=== PATIENT | male | born 1965 | race Caucasian/White ===

== ENCOUNTER 2017-05-05 12:00 | Emergency (ER) | payer OTHER ==
[2017-05-05 12:17] VITALS: BP 144/70; PULSE 74; TEMP 98.5; BMI 25.9
[2017-05-05] MEDS ORDERED: CEFAZOLIN 1 GM/D5W 1 GM/50 ML BAG ONE (13:41)
[2017-05-05] MEDS ORDERED: DIPHTH,PERTUSS(ACELL),TET 0.5 ML DISP.SYRIN IM ONE (13:41)
--- NOTE | 2017-05-05 13:41 | PDOC ---
History of Present Illness - General Chief Complaint: Injury Stated Complaint: INNURY TO FINGER Time Seen by Provider: 05/05/17 12:54 - History of Present Illness Initial Comments: 05/05/17 13:41 CHIEF COMPLAINT: finger laceration HISTORY OF PRESENT ILLNESS: 51 yo M with no significant PMH presents to fast track with laceration to left pinky finger approximately 2 hours ago. Patient reports he hit his finger with a hammer. Patient is unsure when his last tetanus shot was. Patient denies any current fever, chills, nausea, vomiting, or diarrhea. PAST MEDICAL HISTORY: Denies past medical history FAMILY HISTORY: Denies SOCIAL HISTORY:Denies tobacco, alcohol, illicit drug use. SURGICAL HISTORY: Denies ALLERGIES: No known drug allergies REVIEW OF SYSTEMS General/Constitutional: Denies fever or chills. Cardiovascular: Denies chest pain or shortness of breath. Respiratory: Denies cough, wheezing. Gastrointestinal: Denies nausea, vomiting, diarrhea. Genitourinary: Denies dysuria, frequency, or change in urination. Musculoskeletal: Pain to left pinky but with full ROM Denies neck or back pain. Skin: laceration to left pinky Neurologic: Denies loss of sensation to fingers. PHYSICAL EXAM General Appearance: Well-appearing, appropriately dressed. No apparent distress. HEENT: EOMI, PERRLA, normal ENT inspection, normal voice, TMs normal, pharynx normal. No conjunctival pallor. No photophobia, scleral icterus. Respiratory/Chest: Lungs CTAB. Cardiovascular: RRR. S1, S2. Gastrointestinal/Abdominal: Normal bowel sounds. Abdomen soft, non-distended. No tenderness or rebound tenderness. No organomegaly, pulsatile mass, guarding , hernia, hepatomegaly, splenomegaly. Musculoskeletal/Extremities: Normal inspection. FROM of all extremities, normal capillary refill. Pelvis Stable. No CVA tenderness. No tenderness to extremities, pedal edema, swelling, erythema or deformity. Integumentary: Deep partial avulsion laceration to lateral left pinky with bony exposure of distal phalanx. Finger neurovascularly intact with full ROM and no loss of sensation. Appropriate color, dry, warm. No cyanosis, erythema, jaundice or rash Neurologic: collections specialist II-XII intact. Fully oriented, alert. Appropriate mood/affect. Motor strength 5/5. No appreciable EOM palsy, facial droop or sensory deficit. Past History - Past Medical History Allergies/Adverse Reactions: Allergies Allergy/AdvReac Type Severity Reaction Status Date / Time No Known Allergies Allergy Verified 05/05/17 12:20 Home Medications: Ambulatory Orders Cephalexin [Keflex] 500 mg PO BID #20 capsule 05/05/17 COPD: No - Suicide/Smoking/Psychosocial Hx Smoking History: Never smoked Have you smoked in the past 12 months: No Information on smoking cessation initiated: No Hx Alcohol Use: No Drug/Substance Use Hx: No Substance Use Type: None *Physical Exam - Vital Signs Last Vital Signs Temp Pulse Resp BP Pulse Ox 98.5 F 74 18 144/70 100 05/05/17 12:13 05/05/17 12:13 05/05/17 12:13 05/05/17 12:13 05/05/17 12:13 ED Treatment Course - RADIOLOGY Radiology Studies Ordered: Category Date Time Status FINGER(S) LEFT [RAD] Stat Radiology 05/05/17 13:28 Ordered Medical Decision Making - Medical Decision Making 05/05/17 13:45 51 yo M with no significant PMH presents to fast track with laceration to left pinky finger approximately 2 hours ago. -Concern for open fracture, will start patient with 1g IV Ancef. -Tdap IM Called plastics MD Wright, awaiting return call. 05/05/17 15:14 Discussed case with MD Wright, he will come do repair in fast track. Digital block performed of left pinky. 05/05/17 16:[address] Wright, will prescribe antibiotics per Dr. Wright. -Keflex po sent to pharm. Patient to follow up as per Dr. Wright. Advised patient to take medications as prescribed and complete entire course of medication. Advised patient of signs and symptoms for return to ER, patient verbalized understanding and agrees to plan *DC/Admit/Observation/Transfer Diagnosis at time of Disposition: Laceration of finger of left hand Qualifiers: Encounter type: initial encounter Finger: index finger Damage to nail status: without damage Foreign body presence: without foreign body Qualified Code(s): S61.211A - Laceration without foreign body of left index finger without damage to nail, initial encounter - Discharge Dispostion Disposition: HOME Condition at time of disposition: Stable Admit: No - Prescriptions Prescriptions: Cephalexin [Keflex] 500 mg PO BID #20 capsule - Referrals Referrals: Kalia Wright MD [Staff Physician] - Glenroy Villagomez MD [Primary Care Provider] - - Patient Instructions Printed Discharge Instructions: DI for Laceration Repair -- Finger Additional Instructions: Please follow Dr. Wright's directions for follow up. Keep the finger clean and dry for at least 48 hours. Complete the ENTIRE course of antibiotics. If you develop any fever, chills, nausea, vomiting, diarrhea, or your finger becomes swollen, hot, or red, or you develop any new or worsening symptoms, please return to the ER. - Post Discharge Activity Forms/Work/School Notes: Back to Work
[2017-05-05] MEDS ORDERED: morphine CARPU-JECT 2 MG/1 ML DISP.SYRIN IVPUSH ONE (14:26)
== END 2017-05-05 16:41 | disposition home or self-care (01) ==
LOC: JERFT 12:00
PROC: 3E03329 Introduction of Other Anti-infective into Peripheral Vein, Percutaneous Approach (ICD-10-PCS; principal; 2017-05-05)
PROC: 3E0234Z Introduction of Serum, Toxoid and Vaccine into Muscle, Percutaneous Approach (ICD-10-PCS; 2017-05-05)
DX: S62.667B Nondisplaced fracture of distal phalanx of left little finger, initial encounter for open fracture (principal); W27.8XXA Contact with other nonpowered hand tool, initial encounter; Y93.89 Activity, other specified; Y92.89 Other specified places as the place of occurrence of the external cause; Y99.8 Other external cause status
CPT/HCPCS: 73140-TC-LT; 90715; 99281-25

== ENCOUNTER 2019-07-14 12:57 | Emergency (ER) | payer OTHER ==
[2019-07-14 13:00] VITALS: BP 157/80; PULSE 81; TEMP 98.8
--- NOTE | 2019-07-14 13:07 | PDOC ---
Rapid Medical Evaluation Time Seen by Provider: 07/14/19 13:01 Medical Evaluation: Allergies Allergy/AdvReac Type Severity Reaction Status Date / Time No Known Allergies Allergy Verified 05/05/17 12:20 Vital Signs Temp Pulse Resp BP Pulse Ox 98.8 F 81 157/80 100 07/14/19 12:59 07/14/19 12:59 07/14/19 12:59 07/14/19 12:59 07/14/19 13:05 COVID NOTE HPI: The patient is a 53 y/o M with no past medical history, who presents for cough, subjective fevers for 1 days. The patient has no direct exposure to coronavirus, but he states that someone in his apartment building recently from covid 19. (-) Recent travel. They are concerned they have coronavirus and present for testing. (-) sore throat, difficulty breathing, shortness of breath, chest pain, lightheadedness, dizziness nausea, vomiting, and diarrhea. Other 12 point ROS reviewed and negative. EXAM: General: NAD, well-appearing, AAO x3. ENT: No rhinorrhea or nasal congestion. Neck: FROM, no midline tenderness Lungs: Clear to auscultation bilateral without wheezes rales or rhonchi. Normal excursion. Patient is able to speak in full sentences. Heart: Regular rate and rhythm, S1-S2 present, no murmurs rubs or gallops. Abdomen: Non-distended MSK/Extremities: no decreased ROM, no obvious deformities. No cyanosis Neuro: Normal gait, cranial nerves II through XII grossly intact. SKIN: No rashes, bruising. Color normal appearing A/P: Cough Patient has no past medical history, denies recent travel and known direct COVID exposure. Patient does not meet criteria for testing at this time. We will refer the patient to outpatient testing clinics in the [facility] for further monitoring of their symptoms. Strict return precautions given. Instructed that if they should have shortness of breath, chest pain or difficulty breathing to return to the emergency room for further management and treatment. Recommend self-isolation for 14 days given symptoms. Discharge home I discussed the physical exam findings, ancillary test results and final diagnoses with the patient. I answered all of the patient's questions. The patient was satisfied with the care received and felt comfortable with the discharge plan and treatment plan. The Patient agrees to follow up with the primary care physician/specialist within 24-72 hours. Return precautions were given. Discharge Disposition - Diagnosis Cough - Discharge Dispostion Disposition: HOME Condition at time of disposition: Stable Decision to Admit order: No - Referrals Referrals: [facility] [place] [facility] [place] [Provider Group] - Patient Instructions Printed Discharge Instructions: [facility]-Coronavirus Instructions Additional Instructions: You were seen for your cough and possible Espinal virus (COVID-19) Please call the [facility] testing center to make an appointment for a test [phone] Take Tylenol 650mg every 4 hours as needed for fever or pain You may take robitussin or other over the counter cough syrup. Follow the dosing instructions on the bottle. Warm tea, honey, and salt water gargles may help your symptoms. Please pretend like you tested positive for COVID and self-quarantine for two weeks and follow up with your primary care doctor and the department of health. Return to the ER for shortness of breath, difficulty breathing, chest pain, or if you have any changes in your symptoms. Usted fue visto por pérez tos y posible virus Espinal (COVID-19) Llame al [facility] para hacer freddy jacob para un examen [phone] [place] Tylenol 650mg cada 4 horas segn sea necesario para la fiebre o el dolor Usted puede falguni robitussina u otro sobre el jarabe para la tos de venta otto. Siga las instrucciones de dosificacin del frasco. Las grgaras de t caliente, miel y agua salada pueden ayudar a los sntomas. Por favor finja que has dado positivo para COVID y auto-cuarentena sotero dos semanas y haz un seguimiento con tu mdico de atencin primaria y el departamento de [place]. Regrese a urgencias para dificultad para respirar, dificultad para respirar, dolor en el pecho o si tiene algn cambio en los sntomas. Print Language: MALTESE - Post Discharge Activity Work/School Note: Back to Work
== END 2019-07-14 13:51 | disposition home or self-care (01) ==
LOC: JER 12:57
DX: Z03.818 Encounter for observation for suspected exposure to other biological agents ruled out (principal); R05 Cough
CPT/HCPCS: 99282-25

== ENCOUNTER 2023-03-15 12:59 | Emergency (ER) | payer OTHER ==
[2023-03-15 13:15] VITALS: BP 138/70; RESP 18; TEMP 98.7; BMI 26.6
[2023-03-15 13:58] VITALS: PULSE 62
== END 2023-03-15 14:30 | disposition home or self-care (01) ==
LOC: JER 12:59
DX: K64.9 Unspecified hemorrhoids (principal)
CPT/HCPCS: 99283-25